=== PATIENT | female | born 1950 | race Caucasian/White ===

== ENCOUNTER 2017-09-21 09:35 | Emergency (ER) | payer MEDICARE, OTHER ==
[2017-09-21 09:48] VITALS: BP 146/89
--- NOTE | 2017-09-21 09:59 | UC ---
Skin Complaint HPI - History of Current Complaint Chief Complaint: UCSkin Time Seen by Provider: 09/21/17 09:52 Stated Complaint: TICK BITE Hx Obtained From: Patient - patient notied 'skin tag" on R upper thigh 4 days ago, paid no attention t it until it felt bigger 4 days later and her removed it with tweezers. red mike. pt brought removed tick in jar which is engorged ?: No Onset/Duration: Gradual Onset Current Severity: None Pain Intensity: 0 Character: Redness Aggravating Factor(s): Nothing Alleviating Factor(s): Nothing Associated Signs & Symptoms: Positive: Negative Related History: Insect Bite/Sting - Allergy/Home Medications Allergies/Adverse Reactions: Allergies Allergy/AdvReac Type Severity Reaction Status Date / Time No Known Allergies Allergy Verified 09/21/17 09:41 Home Medications: Home Medications Esomeprazole Magnesium [Nexium] 40 mg PO DAILY 09/21/17 [History Confirmed 09/21] Losartan Potassium [Cozaar] 50 mg PO DAILY 09/21/17 [History Confirmed 09/21/17] Simvastatin 20 mg PO DAILY 09/21/17 [History Confirmed 09/21/17] Review of Systems Constitutional: Negative Skin: Other - tick bite Respiratory: Negative Cardiovascular: Negative Musculoskeletal: Negative Neurological: Negative Psychological: Negative Is Patient Immunocompromised?: No All Other Systems Reviewed And Are Negative: Yes PMH/Surg Hx/FS Hx/Imm Hx Previously Healthy: Yes Endocrine History: Dyslipidemia Cardiovascular History: Hypertension GI/ History: Gastroesophageal Reflux - Surgical History Surgical History: None - Family History Known Family History: Positive: Hypertension - Social History Occupation: Unemployed Lives: With Family Alcohol Use: Rare Substance Use Type: None Smoking Status (MU): Never Smoked Tobacco Physical Exam Triage Information Reviewed: Yes Appearance: Well-Appearing, No Pain Distress, Obese Vital Signs: Initial Vital Signs Temp 98 F 09/21/17 09:45 Pulse 76 09/21/17 09:45 Resp 16 09/21/17 09:45 BP 146/89 09/21/17 09:45 Pulse Ox 99 09/21/17 09:45 Vital Signs Reviewed: Yes Respiratory Exam: Normal Cardiovascular Exam: Normal Musculoskeletal Exam: Normal Musculoskeletal: Positive: Strength Intact, ROM Intact Neurological Exam: Normal Psychological Exam: Normal Skin Exam: Other - 4mm erythemic flat lesion upper ant R thigh- site of tick bite. no bulls eye lesion Course/Dx - Differential Diagnoses - Skin Complaint Differential Diagnoses: Abscess, Foreign Body, Tick Born Illness - Diagnoses Provider Diagnoses: tick bite Discharge - Discharge Plan Condition: Good Disposition: HOME Prescriptions: DOXYcycline CAP(*) [DOXYcycline 100MG CAP(*)] 200 mg PO ONCE #2 cap Patient Education Materials: Lyme Disease (ED) Referrals: Esteban Watson MD [Primary Care Provider] - 2 Days (if signs skin infection occur) Additional Instructions: take doxycycline as prescribed today read Lyme disease information and monitor for symptoms. If symptoms occur, follow-up with your primary care provider or return here keep bite wound clean and dry and report signs infection
== END 2017-09-21 10:09 | disposition home or self-care (01) ==
LOC: UCEAST 09:35
DX: S70.361A Insect bite (nonvenomous), right thigh, initial encounter (principal); W57.XXXA Bitten or stung by nonvenomous insect and other nonvenomous arthropods, initial encounter; Y93.9 Activity, unspecified; Y92.9 Unspecified place or not applicable; E78.5 Hyperlipidemia, unspecified; I10 Essential (primary) hypertension; K21.9 Gastro-esophageal reflux disease without esophagitis
CPT/HCPCS: 99212; G0463

== ENCOUNTER 2017-11-02 08:41 | Emergency (ER) | payer MEDICARE, OTHER ==
--- OUTSIDE RECORDS SUMMARY | 2017-11-02 08:48 | XMS REPORT ---
:1950 External Reference #:[id number] Author Organization [facility] Address [address] [address] Phone [phone] Care Team Providers Name Role Phone Esteban Watson MD Primary Care Physician Unavailable Payers Type Date Identification Numbers Payment Provider Subscriber Medicare Primary Policy Number: [id number] Medicare Lamar Us PayID: [id number] [address] [place] [address] Medigap Part B Policy Number: [id number] [employer] [facility] Lamar Us Group Number: [id number] [address] PayID: [id number] [place] [address] Commercial Expires: 2016 Group Name: [facility] Lamar Us Elect Pensioner (Oon) PayID: [id number] [address] [place] [address] Problems Date Description Provider Status Onset: 10/05/2015 Essential hypertension Esteban Watson M.D. Active Onset: 10/05/2015 Mixed hyperlipidemia Esteban Watson M.D. Active Onset: 10/05/2015 Gastroesophageal reflux disease Esteban Watson M.D. Active Onset: 07/10/2017 Disorder of skin AND/OR subcutaneous Esteban Watson M.D. Active tissue Onset: 07/10/2017 Vitamin D deficiency Esteban Watson M.D. Active Family History Date Family Member(s) Problem(s) Comments Mother Breast Cancer First Brother Hypertension First Sister NURSING HOME SOCIAL WORKER Tumors Social History Type Date Description Comments ETOH Use Rarely consumes alcohol Smoking Patient is a former smoker Recreational Drug Use Denies Drug Use Allergies, Adverse Reactions, Alerts Date Description Reaction Status Severity Comments 07/06/2015 NKDA active Medications Medication Date Status Form Strength Qnty SIG Indications Ordering Provider Vitamin D 03/26/ Active Capsules [id number] 4caps 1 cap Esteban (Ergocalciferol) 2016 every Pachikara weekly , M.DYany Losartan Potassium 07/06/ Active Tablets 50mg 90tab take 1 Esteban 2014 s tablet Pachikara by mouth , M.D. every day Simvastatin 07/06/ Active Tablets 20mg 90tab Take 1 Esteban 2014 s Tablet Pachikara By Mouth , M.D. Every Day At Bedtime Chlorpheniramine / Active Tablets 4mg prn Unknown Maleate 0000 Esomeprazole 05/02/ Hx Capsules 40mg 90cap 1 by Segundo August 2015 - DR constanza Landind, 03/27/ every M.DYany,FACP 2016 day Nexium 07/06/ Hx Capsules 40mg 30cap 1 by Esteban Monge - DR [place] mouth Pachikara 05/02/ every , M.D. 2015 day Claritin-D 24 Hour 07/06/ Hx Tablets ER 10-240mg 90tab 1 by Esteban Monge - 24HR s mouth Pachikara 05/02/ every , M.D. 2016 day Immunizations CPT Code Status Date Vaccine Reaction Lot # [id number] Given 05/07/2017 Influenza Virus Vaccine, [id number] Quadrivalent, Split, Preservative Free [id number] Given 05/07/2017 Pneumococcal Conjugate [id number] Vaccine 13 Valent For Intramuscular Use [id number] Given 05/02/2016 Influenza Virus Vaccine, no reaction noted .. [id number] Quadrivalent, Split Virus, [place] [address] Given 07/06/2015 Influenza Virus Vaccine, [id number] Quadrivalent, Split, Preservative Free Vital Signs Date Vital Result Comment 10/09/2017 Weight 203.00 lb Heart Rate 78 /min BP Systolic 116 mmHg BP Diastolic 76 mmHg Body Temperature 97.7 F O2 % BldC Oximetry 97 % 07/10/2017 Weight 203.50 lb Heart Rate 82 /min BP Systolic Sitting 122 mmHg BP Diastolic Sitting 74 mmHg O2 % BldC Oximetry 97 % 03/27/2017 Weight 202.50 lb Heart Rate 94 /min BP Systolic 118 mmHg BP Diastolic 66 mmHg Body Temperature 96.5 F O2 % BldC Oximetry 98 % 12/19/2016 Weight 203.75 lb Heart Rate 72 /min BP Systolic 130 mmHg BP Diastolic 80 mmHg Body Temperature 97.3 F O2 % BldC Oximetry 98 % 09/26/2016 Height 62 inches 5'2" Weight 206.00 lb Heart Rate 76 /min BP Systolic 140 mmHg BP Diastolic 86 mmHg O2 % BldC Oximetry 97 % BMI (Body Mass Index) 37.7 kg/m2 05/02/2016 Weight 204.00 lb Heart Rate 72 /min BP Systolic Sitting 130 mmHg BP Diastolic Sitting 80 mmHg Respiratory Rate 15 /min Body Temperature 98.2 F O2 % BldC Oximetry 98 % 10/05/2015 Weight 195.00 lb Heart Rate 66 /min BP Systolic 126 mmHg BP Diastolic 72 mmHg Body Temperature 98.0 F O2 % BldC Oximetry 98 % 07/06/2015 Height 62 inches 5'2" Weight 202.00 lb Heart Rate 77 /min BP Systolic 137 mmHg BP Diastolic 89 mmHg Body Temperature 97.1 F O2 % BldC Oximetry 98 % BMI (Body Mass Index) 36.9 kg/m2 Results Test Date Test Result H/L Range Note Laboratory test finding 10/01/2017 Vitamin D Total 25(Oh) 20.4 ng/mL 20- 50 Vitamin D 1,25 And Vitamin 03/21/2017 Vitamin D Total 25(Oh) 22.5 ng/mL Low 30-50 D,2 Vitamin D, 1,25 Dihydroxy 42 pg/mL 18-78 1 Laboratory test finding 03/21/2017 Hepatitis C Antibody Nonreactive Nonreactive Comp Metabolic Panel 09/19/2016 Sodium 139 mmol/L 133-145 Potassium 4.6 mmol/L 3.5-5.0 Chloride 104 mmol/L 101-111 Co2 Carbon Dioxide 31 mmol/L 22-32 Anion Gap 4 mmol/L 2-11 Glucose 103 mg/dL High 70-100 Blood Urea Nitrogen 13 mg/dL 6-24 Creatinine 0.72 mg/dL 0.51-0.95 BUN/Creatinine Ratio 18.1 8-20 Calcium 9.0 mg/dL 8.6-10.3 Total Protein 6.7 g/dL 6.4-8.9 Albumin 3.8 g/dL 3.2-5.2 Globulin 2.9 g/dL 2-4 Albumin/Globulin Ratio 1.3 1-3 Total Bilirubin 0.40 mg/dL 0.2-1.0 Alkaline Phosphatase 101 U/L 34-104 Alt 15 U/L 7-52 Ast 15 U/L 13-39 Egfr Non- 81.0 >60 Egfr 104.2 >60 2 Lipid Profile (Trig/Chol/HDL) 09/19/2016 Triglycerides 138 mg/dL 3 Cholesterol 186 mg/dL 4 HDL Cholesterol 51.9 mg/dL 5 LDL Cholesterol 107 mg/dL 6 Comp Metabolic Panel 09/28/2015 Sodium 140 mmol/L 133-145 Potassium 4.5 mmol/L 3.5-5.0 Chloride 105 mmol/L 101-111 Co2 Carbon Dioxide 29 mmol/L 22-32 Anion Gap 6 mmol/L 2-11 Glucose 102 mg/dL High 70-100 Blood Urea Nitrogen 13 mg/dL 6-24 Creatinine 0.79 mg/dL 0.51-0.95 BUN/Creatinine Ratio 16.5 8-20 Calcium 9.2 mg/dL 8.6-10.3 Total Protein 6.9 g/dL 6.4-8.9 Albumin 4.1 g/dL 3.2-5.2 Globulin 2.8 g/dL 2-4 Albumin/Globulin Ratio 1.5 1-3 Total Bilirubin 0.40 mg/dL 0.2-1.0 Alkaline Phosphatase 92 U/L 34-104 Alt 24 U/L 7-52 Ast 20 U/L 13-39 Egfr Non- 73.0 >60 Egfr 93.9 >60 7 Lipid Profile (Trig/Chol/HDL) 09/28/2015 Triglycerides 132 mg/dL 8 Cholesterol 186 mg/dL 9 HDL Cholesterol 58.4 mg/dL 10 LDL Cholesterol 101 mg/dL 11 1 ADDITIONAL INFORMATION This test was developed and its performance characteristics determined by [facility] in a manner consistent with CLIA requirements. This test has not been cleared or approved by the U.S. Food and Drug Administration. Test Performed by: [facility] - [address] [address] 2 Because ethnic data is not always readily available, this report includes an eGFR for both -Americans and non- Americans. The National Kidney Disease Education Program (NKDEP) does not endorse the use of the MDRD equation for patients that are not between the ages of 18 and 70, are , have extremes of body size, muscle mass, or nutritional status, or are non- or non-. According to the National Kidney Foundation, irrespective of diagnosis, the stage of the disease is based on the level of kidney function: Stage Description GFR(mL/min/1.73 m(2)) 1 Kidney damage with normal or decreased GFR 90 2 Kidney damage with mild decrease in GFR 60-89 3 Moderate decrease in GFR 30-59 4 Severe decrease in GFR 15-29 5 Kidney failure <15 (or dialysis) 3 Desirable <150 Borderline high 150-199 High 200-499 Very High >500 4 Desirable <200 Borderline high 200-239 High >239 5 Low <40 Desirable: 40-60 High: >60 6 Desirable: <100 mg/dL Near Optimal: 100-129 mg/dL Borderline High: 130-159 mg/dL High: 160-189 mg/dL Very High: >189 mg/dL 7 Because ethnic data is not always readily available, this report includes an eGFR for both -Americans and non- Americans. The National Kidney Disease Education Program (NKDEP) does not endorse the use of the MDRD equation for patients that are not between the ages of 18 and 70, are , have extremes of body size, muscle mass, or nutritional status, or are non- or non-. According to the National Kidney Foundation, irrespective of diagnosis, the stage of the disease is based on the level of kidney function: Stage Description GFR(mL/min/1.73 m(2)) 1 Kidney damage with normal or decreased GFR 90 2 Kidney damage with mild decrease in GFR 60-89 3 Moderate decrease in GFR 30-59 4 Severe decrease in GFR 15-29 5 Kidney failure <15 (or dialysis) 8 Desirable <150 Borderline high 150-199 High 200-499 Very High >500 9 Desirable <200 Borderline high 200-239 High >239 10 Low <40 Desirable: 40-60 High: >60 11 Desirable: <100 mg/dL Near Optimal: 100-129 mg/dL Borderline High: 130-159 mg/dL High: 160-189 mg/dL Very High: >189 mg/dL Procedures Date CPT Code Description Status Comment 12/25/2016 Bone Mineral Density Test Completed 10/23/2016 Mammogram Completed 02/19/2014 Mammogram Completed does every 2 years 11/19/2012 Colonoscopy Completed need every 3 years/colon polyps Encounters Type Date Location Provider CPT E/M Dx Office Visit 07/11/2017 [facility] [place] [address] L82.1 9:40a Office Visit 07/10/2017 [facility] Internal Medicine - Esteban Watson, [address] I10 8:20a Tayler Granger E78.2 E55.9 L98.9 Office Visit 03/27/2017 7:40a [facility] Esteban Watson M.D. [address] I10 - [place] K21.9 E55.9 Office Visit 12/19/2016 8:00a [facility] Esteban Watson M.D. 27068 I10 - [place] K21.9 E78.2 Z12.4 M81.0 Z11.59 Office Visit 05/02/2016 10:20a [facility] [place] [address] [address] [place] Z23 Office Visit 10/05/2015 8:20a [facility] Esteban Watson M.D. 26233 I10 - [place] E78.2 K21.9 H61.23 Office Visit 07/06/2015 8:40a [facility] Medicine Esteban Watson M.D. 33452 I10 - [place] E78.2 K21.9 Z23 H61.23 Plan of Care Future Appointment(s):02/12/2018 9:00 am - Esteban Watson M.D. at [facility] - Xnsrkyade83/21/2018 - Esteban Watson M.D.I10 Essential ( primary) hypertensionFollow up:4 months/medicare wellness sptcshuuI75.2 Mixed hyperlipidemiaComments:Your goal LDL is <130. You are meeting/not meeting this goal. Discussed diet, avoiding trans fats, reducing saturated fats.Please read the diet literature provided. Continue statin medication, call me if muscle weakness or pain occurs.Goals:Exercising 30 minutes 5 times a week will help raise HDL (good cholesterol) and lower LDL (bad cholesterol.) You need to lose 1-2 pounds per month to move towards a BMI (body mass index) of less than 25.E55.9 Vitamin D deficiency, [id number] Insect bite (nonvenomous), unspecified thigh, init encntr
--- NOTE | 2017-11-02 09:21 | UC ---
Lower Extremity/Ankle HPI - HPI Summary HPI Summary: Patient reports slipping and falling on the bottom 2 stairs at her home this morning twisting her right ankle. Patient came to urgent care with patient has been unable to weight-bear patient has pain in the middle of her foot in her medial malleolus and proximal fibula. Some bruising on top of foot. Patient denies need for pain medication at this time as she took ibuprofen prior to arrival - History of Current Complaint Chief Complaint: UCLowerExtremity Stated Complaint: FOOT AND ANKLE INJURY Time Seen by Provider: 11/02/17 09:15 Hx Obtained From: Patient ?: No Onset/Duration: Sudden Onset Severity Initially: Moderate Severity Currently: Moderate Pain Intensity: 8 Pain Scale Used: 0-10 Numeric Aggravating Factor(s): Standing, Ambulation Alleviating Factor(s): Rest, Elevation, OTC Meds Able to Bear Weight: No - Allergies/Home Medications Allergies/Adverse Reactions: Allergies Allergy/AdvReac Type Severity Reaction Status Date / Time No Known Allergies Allergy Verified 11/02/17 09:11 PMH/Surg Hx/FS Hx/Imm Hx Previously Healthy: No Endocrine History: Dyslipidemia Cardiovascular History: Hypertension - Surgical History Surgical History: None - Family History Known Family History: Positive: Hypertension - Social History Occupation: Retired Lives: With Family Alcohol Use: Rare Substance Use Type: None Smoking Status (MU): Never Smoked Tobacco Review of Systems Constitutional: Negative Skin: Negative Eyes: Negative ENT: Negative Respiratory: Negative Cardiovascular: Negative Gastrointestinal: Negative Genitourinary: Negative Motor: Negative Neurovascular: Negative Musculoskeletal: Negative, Arthralgia - Right foot and lower leg,, Edema - Medial and lateral malleolus Neurological: Negative Psychological: Negative Is Patient Immunocompromised?: No All Other Systems Reviewed And Are Negative: Yes Physical Exam Triage Information Reviewed: Yes Appearance: Well-Appearing, No Pain Distress, Well-Nourished Vital Signs: Initial Vital Signs Temp 97.1 F 11/02/17 09:08 Pulse 77 11/02/17 09:08 Resp 16 11/02/17 09:08 BP 144/82 11/02/17 09:08 Pulse Ox 99 11/02/17 09:08 Vital Signs Reviewed: Yes Eye Exam: Normal Eyes: Positive: Conjunctiva Clear ENT Exam: Normal ENT: Positive: Normal ENT inspection, Hearing grossly normal, Pharynx normal. Negative: Trismus, Muffled voice, Hoarse voice Dental Exam: Normal Neck exam: Normal Neck: Positive: Supple, Nontender Respiratory Exam: Normal Respiratory: Positive: Chest non-tender, No respiratory distress, No accessory muscle use Cardiovascular Exam: Normal Cardiovascular: Positive: RRR, Pulses Normal, Brisk Capillary Refill Musculoskeletal Exam: Other Musculoskeletal: Positive: Strength Limited @ - Right ankle, ROM Limited @ - Right ankle, Edema @ - Medial and lateral malleolus of the right foot Neurological Exam: Normal Neurological: Positive: Alert, Muscle Tone Normal Psychological Exam: Normal Skin Exam: Normal Diagnostics - Radiology No standard instances Xray Interpretation: Positive (See Comments) Radiology Interpretation Completed By: ED Physician, Radiologist - 1. Minimally displaced comminuted fracture of the proximal right fibular metaphysis. 2. Likely nondisplaced fracture of the distal most tibial malleolus. 3. Nondisplaced fractures at the proximal heads of the right third and fourth metatarsals. Re-Evaluation - Re-Evaluation First Eval Change: Improved - Reviewed case with Dr. Masters. Advised to put in posterior splint with side bars have patient be completely nonweightbearing follow-up in office on Saturday. Posterior splint with side bars applied patient reports increased comfort neuromotor circulation intact distally Patient able to be nonweightbearing with a walker Lower Extremity Course/Dx - Course Course Of Treatment: Rest ice elevation. Completely nonweightbearing. Ibuprofen for less severe pain hydrocodone for more severe pain call orthopedic office on Saturday to make a follow-up appointment. Return to emergency department urgent care for any questions or concerns. Follow blood pressure with PCP - Differential Dx/Diagnosis Provider Diagnoses: Comminuted nondisplaced right fibular fracture, nondisplaced fractures of the third and fourth metatarsal head of the right foot, nondisplaced fracture of the medial malleolus. Hypertension in poor control Discharge - Sign-Out/Discharge Documenting (check all that apply): Discharge - Discharge Plan Condition: Stable Disposition: HOME Prescriptions: Hydrocodone/Acetaminophen [Hydrocodone-Acetamin 5-325 mg] 1 each PO Q6HR PRN # 20 tablet MDD 4 PRN Reason: Pain Scale 6-10 Ibuprofen TAB* [Motrin TAB* 600 MG] 600 mg PO Q6H PRN #40 tab PRN Reason: Pain Scale 1-5 Patient Education Materials: Ankle Fracture (ED), Leg Fracture (ED), Foot Fracture in Adults (ED), R.I.C.E. Treatment (ED) Referrals: Jack Masters MD [Medical Doctor] - 11/04/17 sEteban Watson MD [Primary Care Provider] - 1 Week Additional Instructions: Please remain completely non weight bearing. You can ice through your splint. Call the orthopedic doctor Saturday morning for an appointment on Saturday. Any concerns issues feel free to return at any time - Billing Disposition and Condition Condition: STABLE Disposition: HOME
--- NOTE | 2017-11-02 09:59 | RAD ---
INDICATION: Pain at the distal fibula and overlying the right 5th metatarsal after a fall COMPARISON: None. TECHNIQUE: 2 views of the right lower leg, 3 views of the right ankle and 3 views of the right foot were obtained. FINDINGS: There is a comminuted fracture involving the proximal metaphysis of the fibula. The proximal tibia is intact. The knee joint is anatomically aligned in 2 views. There is a horizontally oriented lucency overlying the distal most tibial malleolus which could represent a nondisplaced fracture. The ankle mortise is anatomically aligned otherwise. At the proximal poles of the right foot third and fourth metatarsals there are lucent lines consistent with nondisplaced fractures. The remaining bones of the foot appear to be intact and appropriately aligned. IMPRESSION: Multiple right lower extremity fractures as follows: 1. Minimally displaced comminuted fracture of the proximal right fibular metaphysis. 2. Likely nondisplaced fracture of the distal most tibial malleolus. 3. Nondisplaced fractures at the proximal heads of the right third and fourth metatarsals.
[2017-11-02] MEDS ORDERED: HYDROcodone/ACETAMIN 5-325 MG* 1 TAB PO ONE (10:45)
[2017-11-02 11:12] VITALS: BP 162/77
== END 2017-11-02 11:00 | disposition home or self-care (01) ==
LOC: UCEAST 08:41
DX: S82.451A Displaced comminuted fracture of shaft of right fibula, initial encounter for closed fracture (principal); S92.334A Nondisplaced fracture of third metatarsal bone, right foot, initial encounter for closed fracture; S92.344A Nondisplaced fracture of fourth metatarsal bone, right foot, initial encounter for closed fracture; W10.9XXA Fall (on) (from) unspecified stairs and steps, initial encounter; Y93.89 Activity, other specified; Y92.009 Unspecified place in unspecified non-institutional (private) residence as the place of occurrence of the external cause; E78.5 Hyperlipidemia, unspecified; I10 Essential (primary) hypertension
CPT/HCPCS: 99214; G0463

== ENCOUNTER 2017-11-06 16:27 | Emergency (ER) | payer MEDICARE, OTHER ==
[2017-11-06 16:41] VITALS: BP 161/81
--- NOTE | 2017-11-06 17:44 | UC ---
Ear Complaint HPI - HPI Summary HPI Summary: 67 y/o female presents to the urgent care c/o dry cough, nasal congestion, w/ yellowish nasal discharge for the past 7 days. Pt states Today his Rt eye started w/ mild yellowish drainage and decrease hearing w/ B/L ear pressure and ear pain. Pt also states mild HORAN and sinus pain. Pain is 6/10. She has taken OTC meds to alleviate symptoms w/o any improvement. Pt denies fever, SOB, chest pain, abdominal pain, N/V/D - History of Current Complaint Chief Complaint: UCGeneralIllness Stated Complaint: COUGH,EAR PAIN Time Seen by Provider: 11/06/17 17:42 Hx Obtained From: Patient ?: No Onset/Duration: Gradual Onset, Lasting Weeks - 1 week, Still Present, Worse Since - today Severity Initially: Mild Severity Currently: Moderate Pain Intensity: 6 Pain Scale Used: 0-10 Numeric Aggravating Factors: Nothing Alleviating Factors: OTC Meds Associated Signs/Symptoms: Positive: Hearing Loss, URI Symptoms - Allergies/Home Medications Allergies/Adverse Reactions: Allergies Allergy/AdvReac Type Severity Reaction Status Date / Time No Known Allergies Allergy Verified 11/06/17 16:41 PMH/Surg Hx/FS Hx/Imm Hx Previously Healthy: Yes Endocrine History: Dyslipidemia Cardiovascular History: Hypertension - Surgical History Surgical History: None - Family History Known Family History: Positive: Hypertension, Diabetes - Social History Occupation: Employed Full-time Lives: With Family Alcohol Use: Rare Substance Use Type: None Smoking Status (MU): Never Smoked Tobacco Review of Systems Constitutional: Negative Skin: Negative Eyes: Drainage - RT eye yellowish drainage ENT: Sore Throat, Ear Ache - B/L ear pain and pressure, Nasal Discharge - yellowish, Sinus Congestion, Sinus Pain/Tenderness Respiratory: Cough - dry Cardiovascular: Negative Gastrointestinal: Negative Genitourinary: Negative Motor: Negative Neurovascular: Negative Musculoskeletal: Negative Neurological: Headache Psychological: Negative Is Patient Immunocompromised?: No All Other Systems Reviewed And Are Negative: Yes Physical Exam - Summary Physical Exam Summary: Vitals: reviewed General: Well developed, well-nourished female patient with NAD. Head and face: Normocephalic and atraumatic, Positive tenderness over the frontal and maxillary sinuses.. Eyes: PERRLA, EOMI x 2. Normal conjunctiva. No eye discharge observed. ENT: RT external Ear canal clear, RT TM injected w/ erythema. LF external ear canal clear, LF TM WNL. Nose: with yellowish discharge and erythematous mucosa. Pharynx with erythema, no exudate. +PND yellowish in color Neck: Supple, no JVD, no carotid bruits and no lymphadenopathy. Lungs: clear, no rales, no rhonchi, no wheezes. CVS: RRR, S1 and S2 present no murmurs or gallops appreciated. Abdomen: soft nontender with positive bowel sounds. Extremities: no edema noted. Neuro: WNL. Skin: warm and dry Triage Information Reviewed: Yes Vital Signs: Initial Vital Signs Temp 96.8 F 11/06/17 16:37 Pulse 89 11/06/17 16:37 Resp 18 11/06/17 16:37 BP 161/81 11/06/17 16:37 Pulse Ox 98 11/06/17 16:37 Ear Complaint Course/Dx - Course Course Of Treatment: 67 y/o female presents to the urgent care c/o dry cough, nasal congestion, w/ yellowish nasal discharge for the past 7 days. Pt states Today his Rt eye started w/ mild yellowish drainage and decrease hearing w/ B/L ear pressure and ear pain. Pt also states mild HORAN and sinus pain. Pain is 6/10. She has taken OTC meds to alleviate symptoms w/o any improvement. Pt denies fever, SOB, chest pain, abdominal pain, N/V/D. Hx obtained. Pt w/ acute bacterial sinusitis and R otits media on examination.Pt with 1 week of symptoms getting worse. Pt Rx Augmentin PO and flonase nasal spray. Tessalon PO for cough. Discharge instructions explained to Pt. Advised to Return to the clinic or PCP if symptoms do not improve.Pt's BP is elevated today advised to decrease salt in diet, monitor BP and f/u with PCP for further management. Pt w / Hx of HTN. Pt understood and agreed with plan of care. - Differential Dx/Diagnosis Differential Diagnosis/HQI/PQRI: Barotrauma, Bronchitis, Cerumen Impaction, Otitis Externa, Otitis Media, Perforated TM, URI, Other - sinusitis Provider Diagnoses: 1- Acute bacterial sinusitis. 2-RT otitis media. 3-Cough. 4- uncontrolled HTN Discharge - Sign-Out/Discharge Documenting (check all that apply): Discharge - Discharge Plan Condition: Stable Disposition: HOME Prescriptions: Amoxicillin/Clavulanate TAB* [Augmentin TAB 875*] 875 mg PO BID #20 tab Benzonatate CAP* [Tessalon 100 MG CAP*] 100 mg PO TID #21 cap Fluticasone NASAL SPRAY 50MCG* [Flonase NASAL SPRAY 50MCG*] 2 spray BOTH NARES DAILY #1 btl Patient Education Materials: Sinusitis (ED), Ear Infection (ED), Low-Sodium Diet (ED) Referrals: Esteban Watson MD [Primary Care Provider] - 3 Days Additional Instructions: 1- Please increase fluid intake and rest. take full course of antibiotic to avoid resistance 2-Use Flonase as directed to help drain fluid. Also buy saline drops to clear sinuses 3-Take Tessalon tabs PO to alleviate cough 4-Return to the clinic or PCP in 3 days if symptoms do not improve for further management and treatment. 5-Your BP is elevated today. please decrease salt in your diet, monitor BP and if it continues to be elevated please f/u with your PCP for further management - Billing Disposition and Condition Condition: STABLE Disposition: HOME
== END 2017-11-06 18:19 | disposition home or self-care (01) ==
LOC: UCEAST 16:27
DX: J01.90 Acute sinusitis, unspecified (principal); H66.91 Otitis media, unspecified, right ear; R05 Cough; I10 Essential (primary) hypertension; E78.5 Hyperlipidemia, unspecified
CPT/HCPCS: 99212; G0463

== ENCOUNTER 2019-01-16 12:01 | Emergency (ER) | payer MEDICARE, OTHER ==
[2019-01-16 12:18] VITALS: BP 165/85
--- NOTE | 2019-01-16 12:40 | UC ---
Elbow Pain - HPI Summary HPI Summary: Pt present to for evaluation of left elbow. Pt was hiking and stumbled. Pt fell on left elbow with elbow flexed. pt with persisten pain in left elbow since. No strike head No loc no neck or back pain. No cp, sob, abd pain no n/v /d No other injuries Pt took motrin/apap and applied ice. Pt is RHD. No should or wrist pain. Pt without other injuries. No open wounds. no anticoagulants Medications reviewed - History of Current Complaint Chief Complaint: UCUpperExtremity Stated Complaint: ELBOW INJURY Time Seen by Provider: 01/16/19 12:37 Hx Obtained From: Patient ?: No Pain Intensity: 5 Pain Scale Used: 0-10 Numeric - Allergies/Home Medications Allergies/Adverse Reactions: Allergies Allergy/AdvReac Type Severity Reaction Status Date / Time No Known Allergies Allergy Verified 01/17/19 08:09 PMH/Surg Hx/FS Hx/Imm Hx Previously Healthy: Yes - Surgical History Surgical History: None - Family History Known Family History: Positive: Hypertension, Diabetes, Non-Contributory - Social History Lives: With Family Alcohol Use: Rare Substance Use Type: None Smoking Status (MU): Never Smoked Tobacco Review of Systems All Other Systems Reviewed And Are Negative: Yes Constitutional: Positive: Negative Skin: Positive: Negative Gastrointestinal: Positive: Nausea - very mild Is Patient Immunocompromised?: No Physical Exam - Summary Physical Exam Summary: Vital Signs Reviewed: Yes A+Ox3, no distress except with use Eyes: Conjunctiva Clear, BRYANNA. EOM intact and full ENT: Hearing grossly normal TM x 2 clear, mmoist, uvula midline, no exudate, no erythema Neck: Positive: Supple Respiratory: Positive: No respiratory distress, No accessory muscle use + CTA throughout no w/r Cardiovascular: RRR nl s1, s2 no m/r CBT <2 sec abd soft + BS nt/nd no guarding, no distension Musculoskeletal Exam: No pain c/t/l/s + full ROM cspine full ROM LE b/l RUE full ROM LUE; + ROM shoulder pain with palp medial epicodyle Pain with full extension, + pronate/supinate with pain posterior aspect of elbow + flex/ext wrist with pain referred to elbow Neuro: + thumb up, a ok, finger cross, finger spread Psychological: Positive: Normal Response To Family Skin: Positive: no rash, no ecchymosis no open wounds, edema Triage Information Reviewed: Yes Vital Signs: Initial Vital Signs Temp 98 F 01/16/19 12:15 Pulse 69 01/16/19 12:15 Resp 16 01/16/19 12:15 BP 165/85 01/16/19 12:15 Pulse Ox 100 01/16/19 12:15 Diagnostics - Radiology No standard instances Radiology Interpretation Completed By: Radiologist - Patient Name: BUCK CONTI Medical Record#: [id number] Ordering Physician: Tobi DEXTER Acct.#: [id number] : 1950 Age: 69 Sex: F Location: [facility] Exam Date: 01/16/19 1226 ADM Status: REG ER Order Information: ELBOW LEFT 3+ VWS Accession Number: [id number] CPT: 97116 Indication: Left elbow pain and injury. 4 views of left elbow demonstrates joint effusion. Depressed fracture of the radial head is noted. IMPRESSION: Depressed fracture of the radial head. Joint effusion is noted. _ <Electronically signed by Reyna Pike MD in OV> 01/16/19 1240 Dictated By: Reyna Pike MD Dictated Date/Time: 01/16/19 1240 Transcribed Date/Time: 1239 Copy to: CC:Zehra Gutierrez MD; Esteban Watson MD; Tobi DEXTER [facility] Imaging [facility] Urgent [facility] [address] [address] ph ([phone]) ph ([phone]) ph ([phone]) This report is only to be considered final once signed by the Provider(s) as displayed in the "<Electronically Signed by >" field (s). Patient Name: BUCK CONTI Medical Record#: [id number] Ordering Physician: Zehra Gutierrez MD Acct.#: [id number] : 1950 Age: 69 Sex: F Location: URGENT [facility] Exam Date: 01/16/19 1315 ADM Status: REG ER Order Information: CT EXTREMITY UPPER LEFT WO Accession Number : [id number] CPT: 77702 Indication: LEFT elbow pain following injury. Osteochondral fracture at the radial head on radiographs. Comparison: Radiographs of the same date. Technique: Noncontrast CT LEFT elbow. Multiplanar reformation. REPORT AND IMPRESSION: #. Comminuted fracture at the radial head including a displaced 0.6 x 0.2 x 1.5 cm osteochondral fragment to the posterior recess of the capitellum radial head articulation. Further volar the radial head fracture demonstrates minimal impaction. The entire radial head fracture involves approximately 60% of the radial head articular surface. #. No additional fracture evident. #. Small hemarthrosis. #. Normal articular alignment. #. Mild dorsal soft tissue edema. No loculated soft tissue plane hematoma evident. <Electronically signed by Dylan Wagner MD in OV> 01/16/19 1402 Dictated By: Dylan Wagner MD Dictated Date/Time: 01/16/19 1402 Transcribed Date/Time: 01/16/19 1356 Copy to: CC:Zehra Gutierrez MD; Esteban Watson MD Imaging - [facility] Imaging [facility] [address] [address] ph ([phone] ph ) ph ([phone]) This report is only to be considered final once signed by the Provider(s) as displayed in the "<Electronically Signed by >" field (s). Absence of a signature indicates the report is in a draft status and still needs to be finalized. In the event this document was created by someone other than the signing Provider, the individual initiating the document will be listed in the "Entered by:" or "Dictated by:" madison. 1 of 1 Absence of a signature indicates the report is in a draft status and still needs to be finalized. In the event this document was created by someone other than the signing Provider, the individual initiating the document will be listed in the "Entered by:" or "Dictated by:" madison. Re-Evaluation - Re-Evaluation First Eval Comment: Discussed patient CT scan with Dr. Prado. Patient with loose foreign body in the left elbow. Patient is currently in a sling with ice. Instructed patient to go immediately to the specialty AML ANALYST practice in [place] by the urgent care. Patient's will drive her. Dr. Prado will see her urgently today in anticipation of planning for operative removal of this on Saturday. Patient stated understanding agreement with plan, Instructions given. Patient discharged with directions to drive immediately there. After Eve indicated okay not to immobilize the elbow in anyway is on she was in a sling. Elbow Pain Course/Dx - Course Course Of Treatment: Patient presents to urgent care for pain in her left elbow status post mechanical fall. Patient with an isolate injury. Do not strict return was consciousness. On exam vital signs are stable. Patient has tenderness in the posterior medial aspect of her left nondominant elbow. Patient does have range of motion with pain with full extension as well as pronation/supination. Patient took ibuprofen and Tylenol. We'll give ice here. Plain film imaging shows a depressed fracture of the radial head. There is also an apparent loose fragment. I spoke with Dr. Prado request patient get a CT scan and he will review and call me back. Patient comfortable in agreement with plan. left radial head fracture with displaced fragment Patient noted to have an elevated blood pressure. Related to patient's urgent care condition and pain. recommend follow up with PCP - Differential Dx/Diagnosis Provider Diagnosis: Left radial head fracture Discharge - Sign-Out/Discharge Documenting (check all that apply): Patient Departure All imaging exams completed and their final reports reviewed: Yes - Discharge Plan Condition: Stable Disposition: HOME Patient Education Materials: Elbow Fracture (ED) Referrals: Doron Cook MD [Medical Doctor] - Olu Prado MD [Medical Doctor] - Additional Instructions: - Go directly to the commercial credit specialist in [place] now - he is expecting you - Billing Disposition and Condition Condition: STABLE Disposition: Home
== END 2019-01-16 14:14 | disposition home or self-care (01) ==
LOC: UCEAST 12:01
DX: S52.122A Displaced fracture of head of left radius, initial encounter for closed fracture (principal); W01.0XXA Fall on same level from slipping, tripping and stumbling without subsequent striking against object, initial encounter; Y93.01 Activity, walking, marching and hiking; Y92.9 Unspecified place or not applicable; I09.9 Rheumatic heart disease, unspecified
CPT/HCPCS: 99213; G0463

== ENCOUNTER 2019-01-17 07:57 | Emergency (ER) | payer MEDICARE, OTHER ==
[2019-01-17 08:08] VITALS: BP 155/88
--- NOTE | 2019-01-17 08:23 | UC ---
Cardiac HPI - HPI Summary HPI Summary: This patient is a 69-year-old female who presents to the urgent care with chief complaint of left rib cage pain. She reports that she sustained a fall yesterday and fell on the left side of her body. The patient came into the urgent care and she was diagnosed with an elbow fracture for which the patient is going to see orthopedics surgeon tomorrow. Today she noticed that she developed pain in the left rib cage area therefore she decided to come to the urgent care for further workup and management. She reports no shortness of breath, denies any cough, however when she takes a deep breath or move her left arm the pain increases. She denies any headache,, she denies any head or neck injury. She has not complaints - History of Current Complaint Chief Complaint: UCChestPain Stated Complaint: LEFT RIB PAIN Time Seen by Provider: 01/17/19 08:09 Hx Obtained From: Patient Hx Last Menstrual Period: post Onset/Duration: Gradual Onset Timing: Constant Initial Severity: Mild Current Severity: Moderate Pain Intensity: 6 - Allergy/Home Medications Allergies/Adverse Reactions: Allergies Allergy/AdvReac Type Severity Reaction Status Date / Time No Known Allergies Allergy Verified 01/17/19 08:09 Home Medications: Home Medications Cholecalciferol TAB* [Vitamin D TAB*] 1,000 unit PO DAILY 01/17/19 [History Confirmed 01/17/19] PMH/Surg Hx/FS Hx/Imm Hx Previously Healthy: Yes Endocrine History: Dyslipidemia Cardiovascular History: Hypertension - Surgical History Surgical History: None - Family History Known Family History: Positive: Hypertension, Diabetes, Non-Contributory - Social History Alcohol Use: Rare Substance Use Type: None Smoking Status (MU): Never Smoked Tobacco Review of Systems All Other Systems Reviewed And Are Negative: Yes Constitutional: Positive: Negative Skin: Positive: Negative Eyes: Positive: Negative ENT: Positive: Negative Respiratory: Positive: Negative Cardiovascular: Positive: Negative Gastrointestinal: Positive: Negative Genitourinary: Positive: Negative Motor: Positive: Negative Neurovascular: Positive: Negative Musculoskeletal: Positive: Other: - left rib cage area Neurological: Positive: Negative Psychological: Positive: Negative Is Patient Immunocompromised?: No Physical Exam - Summary Physical Exam Summary: VITAL SIGNS: Reviewed. GENERAL: Patient is a well developed and nourished Female who is lying comfortable in the stretcher. Patient is not in any acute respiratory distress. HEAD AND FACE: No signs of trauma. No ecchymosis, hematomas or skull depressions. No sinus tenderness. EYES: PERRLA, EOMI x 2, No injected conjunctiva, no nystagmus. EARS: Hearing grossly intact. Ear canals and tympanic membranes are within normal limits. MOUTH: Oropharynx within normal limits. NECK: Supple, trachea is midline, no adenopathy, no JVD, no carotid bruit, no c- spine tenderness, neck with full ROM. CHEST: acid tenderness at palpation of the left rib cage area. LUNGS: Clear to auscultation bilaterally. No wheezing or crackles. CVS: Regular rate and rhythm, S1 and S2 present, no murmurs or gallops appreciated. ABDOMEN: Soft, non-tender. No signs of distention. No rebound no guarding, and no masses palpated. Bowel sounds are normal. EXTREMITIES: decreased range of motion on the left elbow secondary to pain. NEURO: Alert and oriented x 3. No acute neurological deficits. Speech is normal and follows commands. SKIN: Dry and warm Vital Signs: Initial Vital Signs Temp 97 F 01/17/19 08:02 Pulse 85 01/17/19 08:02 Resp 16 01/17/19 08:02 BP 155/88 01/17/19 08:02 Pulse Ox 100 01/17/19 08:02 - Assessment/Plan Course Of Treatment: Chest and rib cage x-ray impression: no fracture or dislocation. The patient was given one Coleridge for the pain. The patient will be discharged home with follow-up with primary care physician. Patient is hemodynamically stable alert and oriented 3. Patients blood pressure was noted to be elevated. The patient was instructed to follow up with primary care provider for reassessment of increased blood pressure - Clinical Impression Provider Diagnosis: Rib pain on left side Discharge - Sign-Out/Discharge Documenting (check all that apply): Patient Departure All imaging exams completed and their final reports reviewed: Yes - Discharge Plan Condition: Stable Disposition: HOME Prescriptions: Hydrocodone/Acetaminophen [Coleridge 5-325 Tablet] 1 each PO Q6H PRN #12 tablet MDD 4 PRN Reason: Pain Patient Education Materials: Chest Wall Pain (ED), Rib Contusion (ED) Referrals: Esteban Watson MD [Primary Care Provider] - Additional Instructions: Take medications as instructed Increase your fluid intake F/U with PCP in the next 2-3 days Return to the UC if symptoms worsen - Billing Disposition and Condition Condition: STABLE Disposition: Home
[2019-01-17] MEDS ORDERED: HYDROcodone/ACETAMIN 5-325 MG* 1 TAB PO ONE (09:32)
== END 2019-01-17 09:40 | disposition home or self-care (01) ==
LOC: UCEAST 07:57
DX: R07.81 Pleurodynia (principal); I10 Essential (primary) hypertension; E78.5 Hyperlipidemia, unspecified
CPT/HCPCS: 99212; G0463

== ENCOUNTER → 2019-01-19 05:34 | Day surgery (SDC) | payer MEDICARE, OTHER ==
[~2019-01-19 05:34] MED LIST: Acetaminophen IV 1GM/100ML * 1,000 MG/100 ML VIAL IVPB ONE; Acetaminophen IV 1GM/100ML * 100 ML ONE; Buffered Lidocaine 1% SYRIN* 1 ML/SYRINGE INTRADERM ONE; Bupivacaine 0.25% SDV PF* 10 ML VIAL INJ ONE; Dexamethasone IV* 4 MG/ML 1 ML (4 MG) IV SLOW PU ONE; Dexamethasone IV* 4 MG/ML 1 ML (4 MG) ONE; DiMENhydriNATE IV* 50 MG/ML VIAL IV PUSH PRN; EPHEDrine (Pressors)* 50 MG/ML VIAL ONE; Famotidine TAB* 20 MG ONE; Famotidine TAB* 20 MG PO ONE; Glycopyrrolate IV* 0.2 MG/ML 1 ML VIAL ONE; HYDROmorphone INJ1* 1 MG/ML SYRINGE IV PRN; Ketorolac INJ* 30 MG/ML 1 ML VIAL IV PRN; Ketorolac INJ* 30 MG/ML 1 ML VIAL ONE; Lactated Ringers 1000 ML Bag* 1,000 ML IV SCH; Lidocaine 2% PF * 5 ML VIAL ONE; Midazolam* 1 MG/ML 2 ML VIAL (2 MG) ONE; Naloxone* 0.4 MG/ML 1 ML VIAL IV PRN; Neostigmine Methylsulfate* 3 MG/3 ML SYRINGE ONE; Ondansetron INJ* 2 MG/ML VIAL ONE; PROCHLORPERAZINE INJ 5 MG/ML 2 ML VIAL IV PRN; Propofol* 10 MG/ML 20 ML BTL ONE; Rocuronium* 10 MG/ML VIAL ONE; ceFAZolin 2 GM in NS PREMIX(*) 2 GM/100 ML BAG IVPB ONE; fentaNYL* 50 MCG/ML 2 ML VIAL (100 MCG VIAL) IV PRN; fentaNYL* 50 MCG/ML 5 ML VIAL (250 MCG VIAL) ONE; oxyCODONE TAB* 5 MG TAB ONE; oxyCODONE TAB* 5 MG TAB PO PRN
[2019-01-19 10:29] VITALS: BP 137/81
--- NOTE | 2019-01-19 11:57 | OP ---
DATE OF OPERATION: 01/19/19 - [facility] DATE OF : 50 SURGEON: Olu Prado MD HIGHWAY ENGINEERING TECHNICIAN: GUERITA Huynh. An employee relations assistant was needed for the entirety procedure to aid in positioning of the arm and retraction. ANESTHESIOLOGIST: Dr. Kirk ANESTHESIA: General. PRE-OP DIAGNOSIS: Left elbow radial head posterior fracture dislocation with intraarticular loose body. POST-OP DIAGNOSIS: Left elbow radial head posterior fracture dislocation with intraarticular loose body. OPERATIVE PROCEDURE: Repair of left radial head fracture dislocation including repair to lateral ulnar collateral ligament and excision of radial head loose body, left elbow. INDICATIONS: Lamar is 69. She had the injury. There is a very large osteochondral fragment sitting loose in the elbow joint confirmed on x-ray and CT scan. Looks like it comes off of a comminuted radial head fracture. We had talked about treatment options. I did recommend that we remove the loose osteochondral fragment from the joint so as to prevent any mechanical symptoms. The radial head and neck fracture looks impacted. I am not sure how much will need to be done with that, better to have a look at it at the time of surgery. ESTIMATED BLOOD LOSS: 10 mL. COMPLICATIONS: None. FINDINGS: The left elbow had a complete lateral ulnar collateral ligament tear with resultant valgus posterolateral rotatory instability and a positive pivot shift - intraoperatively. There was a large osteochondral loose body from a central portion of the radial head, found just posterior to the radial capitellar joint. I was able to excise this from the standard lateral approach to the elbow utilizing the interval between the ECRL and EDC. The rest of the radial head fragments were impacted such that replacing that piece was neither necessary or possible given that the area where it had initially come off had closed up due to the impaction of the fragments. DESCRIPTION OF PROCEDURE: Lamar was seen in the preoperative holding area. The correct site, side, and procedure were identified. We came back to the operating room where the arm was prepped and draped in the usual fashion. A time -out was performed. The arm was exsanguinated with the Esmarch and the tourniquet was inflated to 250 mmHg. I went ahead and made a posterior incision centered over the lateral epicondyle. She has a little bit of larger arm. It was a little bit difficult to palpate the lateral epicondyle. We went ahead and made the incision in the typical location. Dissection was carried down. Full thickness flaps were raised off of the fascia. There was a traversing sensory nerve that was protected with the flap anteriorly and preserved. Once I had taken full thickness flaps and exposed the lateral fascia and had the lateral epicondyle in the center of the field of view, I went ahead and started on the mid point of the lateral epicondyle and took myofascial split down, staying just anterior to the equator of the radial head. Dissection was carried down. The annular ligament was released. I did not need to take my dissection any further down the radial neck and no soft tissue structures were released distal to the radial neck. The complete peel off of the origin of the ulnar collateral ligament was immediately visualizable. There was posterolateral rotator instability. I went ahead and placed a varus force and opened up the lateral side of the joint. I was then able to retrieve with a pair of Debakey, the rectangular shaped osteochondral loose fragment. I noted on the radial head where this had came off, there was a little bit of wear on the posterolateral aspect of the capitellum as well. I went ahead and curetted out the hematoma that had developed where the fragment had come off. I brought the fragment back in just to see how it laid down. Ultimately, the anterior portion of the radial head had impacted such that it was not going to be possible and really it was just a couple of millimeters after the impaction, so really was not necessary to place that fragment back in. She developed a nice fibrocartilaginous cap there. The wound was irrigated out. I did go ahead and place 2 DePuy Mitek GII suture anchors in the footprint of the lateral ulnar collateral ligament. Whip stitches were sewn down into the lateral ulnar collateral ligament and then I went ahead in a standard fashion and tied off the sutures via excellent apposition of the lateral ulnar collateral ligament to its footprint at the origin of the lateral epicondyle. This created a nice sling effect underneath the radial head. The postero-lateral rotatory instability and pivot shift were eliminated once the ligament had been repaired. At this point, everything was looking good. I secured the closure of the fascia and tendon origin with 0 Vicryl suture. A 3-0 Vicryl suture was used to reapproximate the subcutaneous tissue taking care not to sew in the subcutaneous nerve, the sensory nerve. Skin was closed with 3-0 nylon. 0.25% Marcaine had been infiltrated all about the operative area. The wound was dressed and long arm splint was applied and she was taken to the recovery room in stable condition. [id number]/[facility] #: [id number] KEVYN
== END | disposition home or self-care (01) ==
LOC: OR 05:34
PROVIDERS: ATTEND Orthopaedic Surgery Hand Surgery
DX: S52.122A Displaced fracture of head of left radius, initial encounter for closed fracture (principal); M24.022 Loose body in left elbow; E78.5 Hyperlipidemia, unspecified; I10 Essential (primary) hypertension; K21.9 Gastro-esophageal reflux disease without esophagitis; W19.XXXA Unspecified fall, initial encounter; Y93.01 Activity, walking, marching and hiking; Y92.9 Unspecified place or not applicable
CPT/HCPCS: A9270-GY; C1713; J0690; J1100; J1885; J2250; J2405; J2704; J2710; J3010; J3490